=== PATIENT | male | born 2000 | race Asian ===

== ENCOUNTER 2021-01-06 20:38 | Emergency (ER) | payer MEDICAID ==
[~2021-01-06] VITALS: Ht 172.7 cm; Wt 81.0 kg
[2021-01-06] MEDS ORDERED: LIDOcaine Viscous 15ml cup MM PRN (23:35)
[2021-01-07] MEDS ORDERED: AZIT-63 PO (00:17)
[2021-01-07 00:25] VITALS: BP 116/78
== END 2021-01-07 00:26 | disposition home or self-care (01) ==
LOC: ER 20:40
DX: J03.90 Acute tonsillitis, unspecified (principal); Z79.899 Other long term (current) drug therapy
CPT/HCPCS: 99283